=== PATIENT | male | born 1955 | race Caucasian/White ===

== ENCOUNTER 2017-05-06 09:43 | Emergency (ER) | payer MEDICARE, OTHER ==
[~2017-05-06] VITALS: Ht 182.9 cm; Wt 72.7 kg
[~2017-05-06 09:43] MED LIST: BUPR8TAB SL; HYDR-3965 PO; RIVA10 PO; TRAM100T28 PO; TRAZ-144 PO
[2017-05-06 09:57] LABS: GLUCOSE,POINT OF CARE 94 MG/DL (70-110)
[2017-05-06 10:16] VITALS: BP 106/66
== END 2017-05-06 10:27 | disposition left against medical advice (07) ==
LOC: EMS 09:45
DX: M19.90 Unspecified osteoarthritis, unspecified site (principal); F17.210 Nicotine dependence, cigarettes, uncomplicated; Z88.1 Allergy status to other antibiotic agents
CPT/HCPCS: 82962; 99283

== ENCOUNTER 2017-05-16 22:32 | Emergency (ER) | payer MEDICARE, OTHER ==
[~2017-05-16] VITALS: Ht 182.9 cm; Wt 72.7 kg
[2017-05-17 01:03] VITALS: BP 114/74
== END 2017-05-17 01:05 | disposition home or self-care (01) ==
LOC: EMS 22:37
DX: F10.129 Alcohol abuse with intoxication, unspecified (principal); M54.9 Dorsalgia, unspecified; F17.210 Nicotine dependence, cigarettes, uncomplicated; Y90.7 Blood alcohol level of 200-239 mg/100 ml; Z88.1 Allergy status to other antibiotic agents
CPT/HCPCS: 36415; 99283; G0480

== ENCOUNTER 2018-03-23 18:20 | Inpatient (IN) | payer MEDICARE, OTHER ==
[~2018-03-23] VITALS: Ht 182.9 cm; Wt 68.2 kg
[~2018-03-23 18:20] MED LIST changes: -BUPR8TAB SL; -RIVA10 PO; -TRAM100T28 PO; -TRAZ-144 PO
[2018-03-23 20:31] VITALS: BP 133/84
[2018-03-23] MEDS ORDERED: ONDANSETRON HCL 4 MG/2 ML VIAL IVP PRN (23:15)
[2018-03-23] MEDS ORDERED: ZOLPIDEM TARTRATE 5 MG TABLET PO PRN (23:15)
[2018-03-23] MEDS ORDERED: 0.9% SODIUM CHLORIDE 10 ML SYRINGE IVP PRN (23:15)
[2018-03-23 23:30] VITALS: BP 135/78
[2018-03-24] MEDS: HEPARIN SODIUM,PORCINE 5,000 UNITS/ML VIAL SQ SCH ×4 (02:10→23:33)
[2018-03-24] MEDS: DEXTROSE 5%-0.9% SODIUM CHL 1,000 ML IV SCH (02:10)
[2018-03-24 04:00] VITALS: BP 135/72
[2018-03-24 07:59] VITALS: BP 130/54
[2018-03-24 08:29] LABS: ALANINE AMINOTRANSFERASE 19 U/L (12-78); ALBUMIN 3.2 g/dL (3.4-5.0); ALKALINE PHOSPHATASE 144 U/L (46-116); ANION GAP 6 mmol/L (8-16); ASPARTATE AMINOTRANSFERASE 22 U/L (15-37); BILIRUBIN,TOTAL 0.4 mg/dL (0.1-1.0); CALCIUM, TOTAL 8.9 mg/dL (8.8-10.5); CARBON DIOXIDE 29 mmol/L (22-29); CHLORIDE 107 mmol/L (98-107); CREATININE 0.81 mg/dL (0.60-1.30); GLOMERULAR FILTR. RATE CALC > 60 mL/min (>60); GLUCOSE,RANDOM 111 mg/dL (70-110); POTASSIUM 4.3 mmol/L (3.5-5.1); SODIUM SERUM 142 mmol/L (136-145); TOTAL PROTEIN, SERUM 6.9 g/dL (6.4-8.2); UREA NITROGEN, BLOOD 19 mg/dL (7-18)
[2018-03-24] MEDS ORDERED: PANTOPRAZOLE SODIUM 40 MG/VIAL IVP SCH (09:00)
[2018-03-24] MEDS: PANTOPRAZOLE SODIUM 40 MG DR TABLET PO SCH (09:18)
[2018-03-24 09:21] LABS: BASOPHILS % (AUTO) 0.7 % (0.0-2.0); EOSINOPHILS % (AUTO) 1.9 % (1.0-6.0); HEMOGLOBIN 13.9 g/dL (13.5-17.5); LYMPHOCYTES # (AUTO) 1.5 K/uL (1.0-4.8); LYMPHOCYTES % (AUTO) 21.3 % (22.0-44.0); MEAN CORPUSCULAR HEMOGLOBIN 34.4 pg (26.0-34.0); MEAN CORPUSCULAR HGB CONC 34.6 G/dL (31.0-37.0); MEAN CORPUSCULAR VOLUME 99 fL (80-100); MONOCYTES # (AUTO) 0.3 K/uL (0.1-1.0); MONOCYTES % (AUTO) 4.6 % (2.0-9.0); NEUTROPHILS # (AUTO) 4.9 K/uL (1.8-7.7); NEUTROPHILS % (AUTO) 71.5 % (40.0-70.0); PLATELET COUNT (AUTO) 210 K/uL (150-450); RED BLOOD CELL COUNT(AUTO) 4.02 MIL/uL (4.50-5.90); RED CELL DISTRIBUTION WIDTH 14.2 % (11.5-14.5)
[2018-03-24 09:24] LABS: PROTHROMBIN TIME 10.5 SEC (9.4-11.6)
[2018-03-24 11:22] VITALS: BP 119/68
[2018-03-24 13:30] VITALS: BP 122/64
[2018-03-24] MEDS ORDERED: MAGNESIUM SULFATE 2 GM in DEXTROSE 5%-WATER 50 ML IV PRN (17:15)
[2018-03-24] MEDS ORDERED: MAGNESIUM SULFATE 4 GM/WATER 100 ML IV PRN (17:15)
[2018-03-24] MEDS: MAGNESIUM OXIDE 400 MG TABLET PO PRN ×3 (17:19→23:33)
[2018-03-24 19:15] VITALS: BP 113/69
[2018-03-24 23:37] VITALS: BP 109/64
[2018-03-25 04:56] VITALS: BP 109/66
[2018-03-25 07:15] VITALS: BP 139/75
[2018-03-25 07:42] LABS: BASOPHILS % (AUTO) 0.9 % (0.0-2.0); EOSINOPHILS % (AUTO) 2.4 % (1.0-6.0); HEMATOCRIT 39.1 % (41-53); HEMOGLOBIN 13.8 g/dL (13.5-17.5); LYMPHOCYTES # (AUTO) 1.7 K/uL (1.0-4.8); LYMPHOCYTES % (AUTO) 29.7 % (22.0-44.0); MEAN CORPUSCULAR HEMOGLOBIN 34.5 pg (26.0-34.0); MEAN CORPUSCULAR HGB CONC 35.4 G/dL (31.0-37.0); MEAN CORPUSCULAR VOLUME 98 fL (80-100); MONOCYTES # (AUTO) 0.6 K/uL (0.1-1.0); MONOCYTES % (AUTO) 9.9 % (2.0-9.0); NEUTROPHILS # (AUTO) 3.2 K/uL (1.8-7.7); NEUTROPHILS % (AUTO) 57.1 % (40.0-70.0); PLATELET COUNT (AUTO) 201 K/uL (150-450); RED BLOOD CELL COUNT(AUTO) 4.01 MIL/uL (4.50-5.90); RED CELL DISTRIBUTION WIDTH 13.8 % (11.5-14.5)
[2018-03-25 07:56] LABS: ANION GAP 5 mmol/L (8-16); CALCIUM, TOTAL 8.6 mg/dL (8.8-10.5); CARBON DIOXIDE 30 mmol/L (22-29); CHLORIDE 102 mmol/L (98-107); CREATININE 0.72 mg/dL (0.60-1.30); GLOMERULAR FILTR. RATE CALC > 60 mL/min (>60); GLUCOSE,RANDOM 116 mg/dL (70-110); POTASSIUM 3.7 mmol/L (3.5-5.1); SODIUM SERUM 137 mmol/L (136-145); UREA NITROGEN, BLOOD 14 mg/dL (7-18)
[2018-03-25] MEDS: PANTOPRAZOLE SODIUM 40 MG DR TABLET PO SCH (08:55)
[2018-03-25] MEDS: HEPARIN SODIUM,PORCINE 5,000 UNITS/ML VIAL SQ SCH ×3 (08:56→23:19)
[2018-03-25] MEDS: MAGNESIUM OXIDE 400 MG TABLET PO PRN ×3 (08:56→23:19)
[2018-03-25 11:09] VITALS: BP 118/67
[2018-03-25 16:10] VITALS: BP 104/62
[2018-03-25 20:17] VITALS: BP 130/62
[2018-03-26 04:56] VITALS: BP 115/68
[2018-03-26 07:19] VITALS: BP 119/74
[2018-03-26] MEDS: DEXTROSE 5%-0.9% SODIUM CHL 1,000 ML IV SCH (08:27)
[2018-03-26] MEDS: PANTOPRAZOLE SODIUM 40 MG DR TABLET PO SCH (08:43)
[2018-03-26] MEDS: HEPARIN SODIUM,PORCINE 5,000 UNITS/ML VIAL SQ SCH ×2 (08:43→15:19)
[2018-03-26 11:35] VITALS: BP 113/74
[2018-03-26 15:38] VITALS: BP 131/76
== END 2018-03-26 17:25 | disposition home or self-care (01) | DRG 392 ==
LOC: EMS 18:21 → EDSTATUS 19:01 → 6N 19:25
PROVIDERS: ADMIT Internal Medicine; ATTEND Internal Medicine
DX: A08.4 Viral intestinal infection, unspecified (principal); Z89.611 Acquired absence of right leg above knee; E83.42 Hypomagnesemia; E11.9 Type 2 diabetes mellitus without complications; E86.0 Dehydration; G89.29 Other chronic pain; J44.9 Chronic obstructive pulmonary disease, unspecified; M54.9 Dorsalgia, unspecified; Z88.2 Allergy status to sulfonamides
CPT/HCPCS: 71046; 72100; 82270; 83735; 87081; 87086; 99285; J1644; J7042